=== PATIENT | female | born 1935 | race Hispanic/Latino ===

== ENCOUNTER 2017-01-25 13:43 | Inpatient (IN) | payer MEDICARE ==
[2017-01-25 15:57] LABS: Basophils % (Auto) 0.6 % (0.0-1.8); Eosinophils % (Auto) 1.2 % (0.0-4.3); Hematocrit 37.8 % (30.3-42.9); Hemoglobin 12.9 gm/dl (10.1-14.3); Mean Corpuscular HGB Conc 34 % (30-34); Mean Corpuscular Hemoglobin 32 pg (28-32); Mean Corpuscular Volume 93 fl (79-97); Platelet Count 173 K/mm3 (140-440); Red Blood Count 4.07 M/mm3 (3.65-5.03); Red Cell Distribution Width 12.7 % (13.2-15.2); White Blood Count 6.1 K/mm3 (4.5-11.0)
--- NOTE | 2017-01-25 16:53 | Emergency Department Report ---
ED Palpitations HPI - General Chief Complaint: Arrhythmia/Palpitations Stated Complaint: TACHYCARDIA Time Seen by Provider: 01/25/17 16:19 Source: patient, EMS Mode of arrival: Stretcher Limitations: No Limitations - History of Present Illness Initial Comments: 82-year-old female with past medical history of [place], coronary artery disease, PE , DVT, "fast heart rate" presenting to the ED complaining arrhythmia. Patient states one hour prior to ED arrival she was sitting on a couch started feeling as if her heart was beating "fast". The symptoms lasted for approximately 25 minutes at which point she called EMS. On EMS arrival the form Gen. heart rate was approximately 145. Patient states she had mild shortness of breath. Patient denies: Fever/chills, chest pain, dyspnea on exertion, abdominal pain, nausea/vomiting/diarrhea. Patient states she's had history of "fast heart rate " in the past and her and her bill clerk discussed possibly placing a pacemaker. MD Complaint: rapid heart beat, "heart racing" -: Sudden, minutes(s) (25) Context: occured during rest Arrythmia History: atrial fibrillation Associated Symptoms: denies other symptoms. denies: chest pain, shortness of breath, syncope, near-syncope, nausea/vomiting, diaphoresis, cough, parasthesias , feeling of impending doom, muscle cramps - Related Data Home Medications Medication Instructions Recorded Confirmed Last Taken Irbesartan [Avapro] 150 mg PO QHS 09/28/13 01/25/17 01/24/17 Metoprolol [Lopressor TAB] 25 mg PO QDAY 09/28/13 01/25/17 01/25/17 Phenytoin [Dilantin] 100 mg PO BID 09/28/13 01/25/17 01/25/17 Simvastatin [Zocor TAB] 40 mg PO QHS 09/28/13 01/25/17 01/24/17 Thyroid,Pork [[place] Thyroid] 60 mg PO QDAY 09/28/13 01/25/17 01/25/17 Ranitidine HCl [Zantac 150 MG TAB] 150 mg PO QHS 01/25/17 01/25/17 01/24/17 Warfarin [Coumadin] 1 mg PO QDAY 01/25/17 01/25/17 01/23/17 Warfarin [Coumadin] 2 mg PO QDAY 01/25/17 01/25/17 01/24/17 Allergies Allergy/AdvReac Type Severity Reaction Status Date / Time influenza virus vaccine, Allergy Swelling Verified 09/28/13 14:57 specific [Influenza Virus Vacc,Specific] Penicillins Allergy Rash Verified 09/28/13 14:57 ED Review of Systems ROS: Stated complaint: TACHYCARDIA Other details as noted in HPI Constitutional: denies: chills, fever Eyes: denies: eye pain, eye discharge, vision change ENT: denies: ear pain, throat pain Respiratory: shortness of breath, SOB with exertion, SOB at rest. denies: cough , wheezing Cardiovascular: palpitations. denies: chest pain, edema, syncope, paroxysmal nocturnal dyspnea Endocrine: no symptoms reported Gastrointestinal: denies: abdominal pain, nausea, diarrhea Genitourinary: denies: urgency, dysuria, discharge Musculoskeletal: denies: back pain, joint swelling, arthralgia Skin: denies: rash, lesions Neurological: denies: headache, weakness, paresthesias Psychiatric: denies: anxiety, depression Hematological/Lymphatic: denies: easy bleeding, easy bruising ED Past Medical Hx - Past Medical History Previous Medical History?: Yes Hx Hypertension: Yes Hx Heart Attack/AMI: Yes (2014 x2 stents) Hx Congestive Heart Failure: No Hx Diabetes: Yes Hx GERD: Yes Hx Arthritis: Yes Hx Seizures: Yes (last seizure 25 yrs ago) Hx Asthma: No Hx COPD: No Additional medical history: "bradycardia", cardiomegaly, upper & lower GI last year found colon polyps, high cholesterol - Surgical History Past Surgical History?: Yes Hx Coronary Stent: Yes (x2 stents) Additional Surgical History: fracture left tibia in July 2013 with associated knee effusions requiring drainage twice, right knee bursa removal - Social History Smoking Status: Never Smoker Substance Use Type: None - Medications Home Medications: Home Medications Medication Instructions Recorded Confirmed Last Taken Type Irbesartan [Avapro] 150 mg PO QHS 09/28/13 01/25/17 01/24/17 History Metoprolol [Lopressor TAB] 25 mg PO QDAY 09/28/13 01/25/17 01/25/17 History Phenytoin [Dilantin] 100 mg PO BID 09/28/13 01/25/17 01/25/17 History Simvastatin [Zocor TAB] 40 mg PO QHS 09/28/13 01/25/17 01/24/17 History Thyroid,Pork [[place] Thyroid] 60 mg PO QDAY 09/28/13 01/25/17 01/25/17 History Ranitidine HCl [Zantac 150 MG TAB] 150 mg PO QHS 01/25/17 01/25/17 01/24/17 History Warfarin [Coumadin] 1 mg PO QDAY 01/25/17 01/25/17 01/23/17 History Warfarin [Coumadin] 2 mg PO QDAY 01/25/17 01/25/17 01/24/17 History ED Physical Exam - General Limitations: No Limitations General appearance: alert, in no apparent distress - Head Head exam: Present: atraumatic, normocephalic - Eye Eye exam: Present: normal appearance - ENT ENT exam: Present: mucous membranes moist - Neck Neck exam: Present: normal inspection - Respiratory Respiratory exam: Present: normal lung sounds bilaterally. Absent: respiratory distress - Cardiovascular Cardiovascular Exam: Present: regular rate, normal rhythm. Absent: systolic murmur, diastolic murmur, rubs, gallop - GI/Abdominal GI/Abdominal exam: Present: soft, normal bowel sounds - Extremities Exam Extremities exam: Present: normal inspection - Back Exam Back exam: Present: normal inspection - Neurological Exam Neurological exam: Present: alert, oriented X3 - Psychiatric Psychiatric exam: Present: normal affect, normal mood - Skin Skin exam: Present: warm, dry, intact, normal color. Absent: rash ED Course Vital Signs 01/25/17 01/25/17 01/25/17 15:29 15:34 16:13 Temperature 97.7 F Pulse Rate 74 Respiratory 16 16 12 Rate Blood Pressure 112/69 Blood Pressure [Left] O2 Sat by Pulse 100 Oximetry 01/25/17 01/25/17 01/25/17 16:20 16:30 16:40 Temperature Pulse Rate 56 L 55 L 54 L Respiratory 16 16 13 Rate Blood Pressure 136/83 136/83 136/83 Blood Pressure [Left] O2 Sat by Pulse 98 99 99 Oximetry 01/25/17 01/25/17 01/25/17 16:50 17:00 17:10 Temperature Pulse Rate 56 L 56 L 58 L Respiratory 12 11 L 11 L Rate Blood Pressure 136/83 136/83 146/66 Blood Pressure [Left] O2 Sat by Pulse 99 100 99 Oximetry 01/25/17 01/25/17 01/25/17 17:20 17:21 17:30 Temperature 98.0 F Pulse Rate 61 57 L Respiratory 14 14 Rate Blood Pressure 146/66 146/66 Blood Pressure [Left] O2 Sat by Pulse 98 100 Oximetry 01/25/17 01/25/17 01/25/17 17:40 17:50 18:00 Temperature Pulse Rate 64 56 L 51 L Respiratory 14 15 11 L Rate Blood Pressure 146/66 146/66 146/66 Blood Pressure [Left] O2 Sat by Pulse 99 99 100 Oximetry 01/25/17 01/25/17 01/25/17 18:10 18:20 21:17 Temperature 98.1 F Pulse Rate 55 L 62 70 Respiratory 13 11 L 18 Rate Blood Pressure 141/61 146/66 Blood Pressure 166/64 [Left] O2 Sat by Pulse 99 100 99 Oximetry - Reevaluation(s) Reevaluation #1: 01/25/17 16:55 Patient resting comfortably. ED Medical Decision Making - Lab Data Result diagrams: 01/25/17 15:48 01/25/17 18:53 - EKG Data EKG shows normal: sinus rhythm (57), axis (negative ), intervals (QTC 410 ) Rate: normal - EKG Data When compared to previous EKG there are: previous EKG unavailable - Radiology Data Radiology results: report reviewed, image reviewed interpreted by me: mild vascular congestion, no other acute findings. - Medical Decision Making 82 -year-old female presenting to the ED status post palpitations and tachycardia. Patient's troponin negative however BNP elevated no previous to compare in the system. GIven tacycardia was accompanied by SOB, My concern is that the patient may be volume overloaded with mild pulmonary edema I will admit to medicine service for aggressive IV diuresis. Patient agrees to plan. - Differential Diagnosis ACS, PNA, PE, Pneumothorax Critical Care Time: Yes Critical care attestation.: If time is entered above; I have spent that time in minutes in the direct care of this critically ill patient, excluding procedure time. Critical Care Time: 35 minutes of critical care time ED Disposition Clinical Impression: Pulmonary edema, Shortness of breath, Palpitations Disposition: OP ADMIT IP TO THIS HOSP Is pt being admited?: Yes Does the pt Need Aspirin: No Condition: Stable
--- NOTE | 2017-01-25 16:53 | XRay Report ---
Chest 2 views. History: Shortness of breath. Findings: The heart and pulmonary vessels are normal. The lungs are clear. There is a large hiatal hernia. There is no pleural fluid. Impression: No acute findings. A large hiatal hernia is present.
[2017-01-25 16:56] LABS: Bilirubin,Urine NEG (Negative); Blood,Urine NEG (Negative); Ketones,Urine NEG (Negative); Leukocyte Esterase,Urine TR (Negative); Mucus,Urine FEW /HPF; Nitrite,Urine NEG (Negative); Protein,Urine <15 mg/dL mg/dL (Negative); RBC,Urine < 1.0 /HPF (0.0-6.0); Urobilinogen,Urine < 2.0 mg/dL (<2.0); WBC,Urine < 1.0 /HPF (0.0-6.0)
[2017-01-25 17:22] LABS: INR 1.91 (0.87-1.13)
[2017-01-25 17:23] LABS: Partial Thromboplastin Time 28.3 Sec. (24.2-36.6)
--- NOTE | 2017-01-25 19:20 | Admit Criteria Form ---
Admission Criteria Documentation: HEART FAILURE: COMMON COMPLICATIONS Clinical Indications for Inpatient Care (egegik/check or initial the applicable condition/criteria): Ongoing inpatient care may be indicated for heart failure with 1 or more of the following (1)(2)(3)(4)(5)(6)(7)(8): [ ]I. New-onset heart failure [ ]II. Acute cardiac ischemia causing or associated with failure [ ]III. Ongoing need for care for primary condition requiring frequent therapy adjustments because of changes in cardiac function (eg, drug dosage changes for drugs that are renally metabolized) [X]IV. Complications of heart failure, including 1 or more of the following: [ ]a) Hemodynamic instability [ ]b) Pericardial effusion [ ]c) Symptomatic pleural effusion(16) [ ]d) Hypoxemia [ ]e) Tachypnea [X ]f) Dyspnea [ ]g) Syncope [ ]h) Altered mental status [ ]i) Acute renal insufficiency that is severe (reduction of more than 50% in estimated glomerular filtration rate from baseline) or progressive (reduction of more than 25% in estimated glomerular filtration rate from baseline, with creatinine continuing to rise) [ ]j) Debilitating anasarca (eg tissue breakdown with infection, inability to void due to edema)(E) (17) [ ]k) Clinically significant metabolic abnormalities due to heart failure (e.g., new-onset metabolic acidosis) Extended stay may be needed until ALL of the following are present(1)(3)(18)(41) (55): [ ]a) Hemodynamic stability [ ]b) Stable and effective diuretic regimen established (or patient on stable dialysis regimen if in chronic renal failure) [ ]c) Volume status acceptable on oral medication [ ]d) Breathing comfortably at rest [ ]e) Saturation of arterial oxygen greater than 90% or at acceptable baseline [ ]f) Pulmonary edema absent or improved [ ]g) Peripheral or sacral edema absent or improved [ ]h) Renal function stable and manageable at a lower level of care [ ]i) Complications (e.g., pleural effusion) resolved or manageable at a lower level of care [ ]j) Patient or caregiver has received written discharge instructions or educational material addressing activity level, diet, discharge medications, follow-up appointment, weight monitoring, and what to do if symptoms worsen. (56)(57)(58) The original [facility] [employer] content created by Indira Flower has been revised. The portions of the content which have been revised are identified through the use of italic text or in bold, and Indira Flower has neither reviewed nor approved the modified material.All other unmodified content is copyright [facility] [email or web address]. Please see references footnoted in the original [facility] edition 2017 Admission Criteria Met: Yes
[2017-01-25 19:43] LABS: Anion Gap 21 mmol/L; BUN/Creatinine Ratio 28.57; Blood Urea Nitrogen 20 mg/dL (7-17); Calcium 9.4 mg/dL (8.4-10.2); Carbon Dioxide 22 mmol/L (22-30); Chloride 102.7 mmol/L (98-107); Glucose 85 mg/dL (65-100); Potassium 4.2 mmol/L (3.6-5.0); Sodium 141 mmol/L (137-145)
[2017-01-25] MEDS ORDERED: LASIX IV ONE (19:55)
--- NOTE | 2017-01-25 19:57 | History and Physical Report ---
History of Present Illness Chief complaint: my heart is beating real fast History of present illness: 82 YO Female with Atrial Fib, OA,GERD, [place], HTN, CAD S/P Stent Placement, Seizure Disorder, DVT/PE, Cardiomyopathy presents to ED for evaluation. Patient states one hour prior to ED arrival she was sitting on a couch started feeling as if her heart was beating "fast". The symptoms lasted for approximately 25 minutes at which point she called EMS. Upon EMS arrival pt found to have AF with heart rate of 145. Pt denies medication noncompliance, vision changes, CP , syncope, NVD, incontinence, back pain, fever, weight loss, night sweats, SOB, NVD, CP, Prononged Immobility, Calf pain, Hemoptysis, Chest pain with deep breathing. Pt acknowledges individual history of DVT/PE S/P surgery. Past History Past Medical History: acute [place], atrial fib, arthritis, CAD, DVT, GERD, pulmonary embolism Past Surgical History: Other (stent, knee surgery, Left leg surgery) Social history: , lives with family. denies: smoking, alcohol abuse, prescription drug abuse, IV drug use Family history: hypertension Medications and Allergies Allergies Allergy/AdvReac Type Severity Reaction Status Date / Time influenza virus vaccine, Allergy Swelling Verified 09/28/13 14:57 specific [Influenza Virus Vacc,Specific] Penicillins Allergy Rash Verified 09/28/13 14:57 Home Medications Medication Instructions Recorded Confirmed Last Taken Type Irbesartan [Avapro] 150 mg PO QDAY 09/28/13 02/09/15 09/28/13 History Metoprolol [Lopressor TAB] 25 mg PO QDAY 09/28/13 02/09/15 09/28/13 History Phenytoin [Dilantin] 100 mg PO Q8HR 09/28/13 02/09/15 09/28/13 History Simvastatin [Zocor TAB] 40 mg PO QHS 09/28/13 02/09/15 09/28/13 History Thyroid,Pork [[place] Thyroid] 60 mg PO QDAY 09/28/13 02/09/15 09/28/13 History Aspirin [Aspirin TAB] 325 mg PO QDAY #90 tablet 09/30/13 02/09/15 Unknown Rx Clopidogrel [Plavix] 75 mg PO QDAY #30 tablet 09/30/13 02/09/15 Unknown Rx Azithromycin [Zithromax Z-ERIBERTO] 250 mg PO DAILY #1 tab 02/10/15 Unknown Rx Cetirizine HCl [ZyrTEC] 10 mg PO DAILY PRN #10 capsule 02/10/15 Unknown Rx Review of Systems All systems: negative Constitutional: no weight loss Ears, nose, mouth and throat: no ear pain Cardiovascular: palpitations, rapid/irregular heart beat, no chest pain Respiratory: no cough Gastrointestinal: no abdominal pain Genitourinary Female: no pelvic pain Menstruation: no ammenorrhea Rectal: no pain Musculoskeletal: no neck stiffness Integumentary: no rash Neurological: no head injury Psychiatric: no anxiety Endocrine: no cold intolerance Hematologic/Lymphatic: no easy bruising Allergic/Immunologic: no urticaria Exam - Constitutional Vitals: Temp Pulse Resp BP Pulse Ox 98.0 F 62 11 L 146/66 100 01/25/17 17:21 01/25/17 18:20 01/25/17 18:20 01/25/17 18:20 01/25/17 18:20 General appearance: Present: mild distress - EENT Eyes: Present: PERRL ENT: hearing intact, clear oral mucosa - Neck Neck: Present: supple, normal ROM - Respiratory Respiratory: bilateral: diminished - Cardiovascular Rhythm: irregularly irregular Heart Sounds: Absent: gallop - Extremities Extremities: pulses symmetrical, No edema Peripheral Pulses: within normal limits - Abdominal General gastrointestinal: Present: soft, non-tender, non-distended, normal bowel sounds Female genitourinary: Present: normal - Integumentary Integumentary: Present: clear, warm, dry - Musculoskeletal Musculoskeletal: gait normal, strength equal bilaterally - Psychiatric Psychiatric: appropriate mood/affect, intact judgment & insight - Neurologic Neurologic: CNII-XII intact, moves all extremities Results - Labs CBC & Chem 7: 01/25/17 15:48 01/25/17 18:53 Labs: Abnormal lab results 01/25/17 01/25/17 01/25/17 Range/Units 15:48 16:20 16:55 RDW 12.7 L (13.2-15.2) % Lymph % (Auto) 36.4 H (13.4-35.0) % [place] % (Auto) 9.7 H (0.0-7.3) % PT 22.9 H (12.2-14.9) Sec. INR 1.91 H (0.87-1.13) BUN (7-17) mg/dL NT-Pro-B Natriuret Pep (0-900) pg/mL Urine pH 8.0 H (5.0-7.0) // Range/Units 18:53 RDW (13.2-15.2) % Lymph % (Auto) (13.4-35.0) % [place] % (Auto) (0.0-7.3) % PT (12.2-14.9) Sec. INR (0.87-1.13) BUN 20 H (7-17) mg/dL NT-Pro-B Natriuret Pep 1058 H (0-900) pg/mL Urine pH (5.0-7.0) Assessment and Plan - Patient Problems (1) Atrial fibrillation with rapid ventricular response Current Visit: Yes Status: Acute Plan to address problem: Cardiology consulted, resume full dose aspirin, supportive care, Pt currently NSR with controlled rate. (2) Accelerated hypertension Current Visit: No Status: Acute Plan to address problem: Monitor bp q shift, supportive care, resume home medication (3) Coronary artery disease Current Visit: No Status: Acute Qualifiers: Coronary Disease-Associated Artery/Lesion type: C [place] vs. transplanted heart: N Associated angina: A Plan to address problem: antiplatelet therapy, statin therapy, supportive care. (4) Hyperlipidemia Current Visit: No Status: Acute Qualifiers: Hyperlipidemia type: H Plan to address problem: continue statin therapy, (5) DVT prophylaxis Current Visit: No Status: Acute
[2017-01-25] MEDS ORDERED: ZOFRAN IV PRN (20:03)
[2017-01-25] MEDS ORDERED: MILK OF MAGNESIA PO PRN (20:03)
[2017-01-25] MEDS ORDERED: DULCOLAX PR PRN (20:03)
[2017-01-25] MEDS ORDERED: TYLENOL PO PRN (20:03)
[2017-01-25] MEDS ORDERED: NACL 0.45% 1000 ML 1,000 ML IV SCH (21:00)
[2017-01-25] MEDS ORDERED: LASIX ONE (21:37)
[2017-01-25] MEDS ORDERED: ZOCOR ONE (21:46)
[2017-01-25] MEDS ORDERED: DILANTIN ONE (21:47)
[2017-01-25] MEDS ORDERED: ZOCOR PO SCH (22:00)
[2017-01-25] MEDS: DILANTIN PO SCH (22:00)
[2017-01-26] MEDS: DILANTIN PO SCH ×2 (05:31→14:11)
[2017-01-26] MEDS ORDERED: PLAVIX PO SCH (10:00)
[2017-01-26] MEDS ORDERED: ASPIRIN PO SCH (10:00)
[2017-01-26] MEDS ORDERED: COZAAR PO SCH (10:00)
[2017-01-26] MEDS ORDERED: LOPRESSOR PO SCH (10:00)
[2017-01-26] MEDS ORDERED: NON-FORMULARY (Irbesartan [Avapro] 150 MG) PO SCH (10:00)
[2017-01-26] MEDS ORDERED: THYROID PORK 60 MG PO SCH (10:00)
--- NOTE | 2017-01-26 10:55 | Consultation ---
History of Present Illness Consult date: 01/26/17 Consult reason: atrial fibrillation History of present illness: This is an 82yr old woman with a past medical history of Hypertension, Seizure disorder, Coronary artery disease, PE/DVT s/p IVC filter on warfarin for oral anticoagulation who presented with palpitations. Patient reports she was sitting , reading a book when she felt her heart racing. EMS was called and she was noted to be in rapid atrial flutter, rate 141. She had no shortness of breath or chest pain. She denies diaphoresis. There was no pre-syncope or syncope. Patient complained of headaches. On arrival to the ED she spontaneously reverted to a sinus rhythm. A repeat ECG shows a sinus bradycardia, no acute ischemic changes. Cardiology consultation requested. Past History Past Medical History: acute [place], atrial fib, arthritis, CAD, DVT, GERD, pulmonary embolism Past Surgical History: Other (stent, knee surgery, Left leg surgery) Social history: , lives with family. denies: smoking, alcohol abuse, prescription drug abuse, IV drug use Family history: hypertension Medications and Allergies Allergies Allergy/AdvReac Type Severity Reaction Status Date / Time influenza virus vaccine, Allergy Swelling Verified 09/28/13 14:57 specific [Influenza Virus Vacc,Specific] Penicillins Allergy Rash Verified 09/28/13 14:57 Home Medications Medication Instructions Recorded Confirmed Last Taken Type Irbesartan [Avapro] 150 mg PO QHS 09/28/13 01/25/17 01/24/17 History Metoprolol [Lopressor TAB] 25 mg PO QDAY 09/28/13 01/25/17 01/25/17 History Phenytoin [Dilantin] 100 mg PO BID 09/28/13 01/25/17 01/25/17 History Simvastatin [Zocor TAB] 40 mg PO QHS 09/28/13 01/25/17 01/24/17 History Thyroid,Pork [[place] Thyroid] 60 mg PO QDAY 09/28/13 01/25/17 01/25/17 History Ranitidine HCl [Zantac 150 MG TAB] 150 mg PO QHS 01/25/17 01/25/17 01/24/17 History Warfarin [Coumadin] 1 mg PO QDAY 01/25/17 01/25/17 01/23/17 History Warfarin [Coumadin] 2 mg PO QDAY 0701/25/17 01/24/17 History Active Meds: Active Medications Acetaminophen (Tylenol) 650 mg PO Q4H PRN PRN Reason: Pain MILD(1-3)/Fever >100.5/DELACRUZ Last Admin: 01/26/17 05:33 Dose: 650 mg Aspirin (Aspirin) 325 mg PO QDAY [facility] Last Admin: 01/26/17 10:08 Dose: 325 mg Bisacodyl (Dulcolax) 10 mg [place] QDAY PRN PRN Reason: Constipation unrelieved by MOM Clopidogrel Bisulfate (Plavix) 75 mg PO QDAY [facility] Last Admin: 01/26/17 10:08 Dose: 75 mg Sodium Chloride (Nacl 0.45% 1000 Ml) 1,000 mls @ 42 mls/hr IV DIRECT [facility] Losartan Potassium (Cozaar) 50 mg PO QDAY [facility] Last Admin: 01/26/17 10:09 Dose: 50 mg Magnesium Hydroxide (Milk Of Magnesia) 30 ml PO Q4H PRN PRN Reason: Constipation Metoprolol Tartrate (Lopressor) 25 mg PO QDAY [facility] Last Admin: 01/26/17 10:08 Dose: 25 mg Miscellaneous Medication (Thyroid,Pork [[place] Thyroid]) 60 mg PO QDAY [facility] Ondansetron HCl (Zofran) 4 mg IV Q8H PRN PRN Reason: N/V unrelieved by Reglan Phenytoin (Dilantin) 100 mg PO Q8HR [facility] Last Admin: 01/26/17 05:31 Dose: 100 mg Simvastatin (Zocor) 40 mg PO QHS [facility] Physical Examination Vital Signs Temp Pulse Resp BP 97.7 F 74 16 112/69 01/25/17 15:29 01/25/17 15:29 01/25/17 15:29 01/25/17 15:29 General appearance: no acute distress HEENT: Positive: PERRL Neck: Positive: trachea midline Cardiac: Positive: Reg Rate and Rhythm Lungs: Positive: Decreased Breath Sounds Neuro: Positive: Grossly Intact Extremities: Absent: edema Results 01/25/17 15:48 01/25/17 18:53 Assessment and Plan Atrial flutter spontaneously reverted to a sinus rhythm Hx of Seizure disorder Hx of CAD Hypertension Hx of PE/DVT s/p IVC filter on warfarin as an outpatient for oral anticoagulation
[2017-01-26] MEDS ORDERED: THYROID PO SCH (15:00)
[2017-01-26 15:18] VITALS: BP 122/81
--- NOTE | 2017-01-26 15:58 | Progress Note ---
Assessment and Plan Assessment and plan: Patient is a 82-year-old woman with history of Atrial Fib on warfarin, OA,GERD, ND, HTN, CAD S/P Stent Placement, Seizure Disorder, DVT/PE, Cardiomyopathy and hypothyroidism presents to ED for evaluation. Patient states one hour prior to ED arrival she was sitting on a couch started feeling as if her heart was beating "fast". The symptoms lasted for approximately 25 minutes at which point she called EMS. Upon EMS arrival pt found to have AF with heart rate of 145. Pt denies medication noncompliance, vision changes, CP, syncope, NVD, incontinence, back pain, fever, weight loss, night sweats, SOB, NVD, CP, Prononged Immobility, Calf pain, Hemoptysis, Chest pain with deep breathing. Pt acknowledges individual history of DVT/PE S/P surgery. PCP is Dr. Vergara. Glue Line Operator is Dr. Martinez. -Paroxysmal atrial flutter with RVR Resume anticoagulation with warfarin therapy Outpatient follow-up with EP will be scheduled for atrial flutter ablation per cardiology -Accelerated hypertension -Coronary artery disease -Anticoagulation therapy INR 1.91 Patient has been scheduled to see Dr. Swain February 13 at 9:10 AM for possible ablation No further testing therefore discharged home History Interval history: Patient seen and examined. Follow up on palpitations. Overnight uneventful. No cp, sob, n/v or severe headaches. Imaging, old records, testing, labs, nursing notes reviewed. Hospitalist Physical - Physical exam Narrative exam: GEN: WDWN, NAD, AWAKE, ALERT, ORIENTATED x 3 HEENT: NCAT, PERRL, EOMI, OP CLEAR NECK: SUPPLE, NO THYROMEGALY, NO JVD, NO LAD CVS: irregular irregular NORMAL S1S2 LUNGS/CHEST: CTA B, NORMAL CHEST EXPANSION B, GOOD AIR ENTRY B ABD: SOFT, NTND, GBS, NO REBOUND OR GUARDING EXT/SKIN: NO SIGNIFICANT EDEMA OR RASH MSK: FROM X 4 EXTREMITIES NEURO: CN 2-12 GROSSLY INTACT, NO FOCAL DEFICITS PSY: CALM - Constitutional Vitals: Temp Pulse Resp BP Pulse Ox 97.5 F L 56 L 14 122/81 98 01/26/17 15:16 01/26/17 15:16 01/26/17 15:16 01/26/17 15:16 01/26/17 15:16 General appearance: Present: no acute distress Results - Labs CBC & Chem 7: 01/25/17 15:48 01/25/17 18:53 Labs: Laboratory Last Values WBC 6.1 K/mm3 (4.5-11.0) 01/25/17 15:48 RBC 4.07 M/mm3 (3.65-5.03) 01/25/17 15:48 Hgb 12.9 gm/dl (10.1-14.3) 01/25/17 15:48 Hct 37.8 % (30.3-42.9) 01/25/17 15:48 MCV 93 fl (79-97) 01/25/17 15:48 MCH 32 pg (28-32) 01/25/17 15:48 MCHC 34 % (30-34) 01/25/17 15:48 RDW 12.7 % (13.2-15.2) L 01/25/17 15:48 Plt Count 173 K/mm3 (140-440) 01/25/17 15:48 Lymph % (Auto) 36.4 % (13.4-35.0) H 01/25/17 15:48 [place] % (Auto) 9.7 % (0.0-7.3) H 01/25/17 15:48 Eos % (Auto) 1.2 % (0.0-4.3) 01/25/17 15:48 Baso % (Auto) 0.6 % (0.0-1.8) 01/25/17 15:48 Lymph # 2.2 K/mm3 (1.2-5.4) 01/25/17 15:48 [place] # 0.6 K/mm3 (0.0-0.8) 01/25/17 15:48 Eos # 0.1 K/mm3 (0.0-0.4) 01/25/17 15:48 Baso # 0.0 K/mm3 (0.0-0.1) 01/25/17 15:48 Seg Neutrophils % 52.1 % (40.0-70.0) 01/25/17 15:48 Seg Neutrophils # 3.2 K/mm3 (1.8-7.7) 01/25/17 15:48 PT 22.9 Sec. (12.2-14.9) H 01/25/17 16:55 INR 1.91 (0.87-1.13) H 01/25/17 16:55 APTT 28.3 Sec. (24.2-36.6) 01/25/17 16:55 Sodium 141 mmol/L (137-145) 01/25/17 18:53 Potassium 4.2 mmol/L (3.6-5.0) 01/25/17 18:53 Chloride 102.7 mmol/L (98-107) 01/25/17 18:53 Carbon Dioxide 22 mmol/L (22-30) 01/25/17 18:53 Anion Gap 21 mmol/L 01/25/17 18:53 BUN 20 mg/dL (7-17) H 01/25/17 18:53 Creatinine 0.7 mg/dL (0.7-1.2) 01/25/17 18:53 Estimated GFR > 60 ml/min 01/25/17 18:53 BUN/Creatinine Ratio 28.57 % 01/25/17 18:53 Glucose 85 mg/dL (65-100) 01/25/17 18:53 Calcium 9.4 mg/dL (8.4-10.2) 01/25/17 18:53 Troponin T < 0.010 ng/mL (0.00-0.029) 01/25/17 18:53 NT-Pro-B Natriuret Pep 1058 pg/mL (0-900) H 01/25/17 18:53 Urine Color Yellow (Yellow) 01/25/17 16:20 Urine Turbidity Clear (Clear) 01/25/17 16:20 Urine pH 8.0 (5.0-7.0) H 01/25/17 16:20 Ur Specific [place] 1.008 (1.003-1.030) 01/25/17 16:20 Urine Protein <15 mg/dl mg/dL (Negative) 01/25/17 16:20 Urine Glucose (UA) Neg mg/dL (Negative) 01/25/17 16:20 Urine Ketones Neg mg/dL (Negative) 01/25/17 16:20 Urine Blood Neg (Negative) 01/25/17 16:20 Urine Nitrite Neg (Negative) 01/25/17 16:20 Urine Bilirubin Neg (Negative) 01/25/17 16:20 Urine Urobilinogen < 2.0 mg/dL (<2.0) 01/25/17 16:20 Ur Leukocyte Esterase Tr (Negative) 01/25/17 16:20 Urine WBC (Auto) < 1.0 /HPF (0.0-6.0) 01/25/17 16:20 Urine RBC (Auto) < 1.0 /HPF (0.0-6.0) 01/25/17 16:20 U Epithel Cells (Auto) 1.0 /HPF (0-13.0) 01/25/17 16:20 Urine Mucus Few /HPF 01/25/17 16:20
--- NOTE | 2017-01-26 16:09 | Discharge Summary ---
Providers - Providers Date of Admission: 01/25/17 20:03 Date of discharge: 01/26/17 Attending physician: RODIRCK ALCAZAR 01/25/17 20:13 Consult to Physician [CONS] Routine Consulting Provider: MARCIAL MONTENEGRO Reason For Exam: Afib/Sick sinus syndrome Place consult to:: cardiology Notified:: Idania Phone number called:: In House Time called:: 08:20 Primary care physician: [employer] [employer] Hospitalization Condition: Stable Hospital course: Patient is a 82-year-old woman with history of Atrial Fib on warfarin, OA,GERD, NM, HTN, CAD S/P Stent Placement, Seizure Disorder, DVT/PE, Cardiomyopathy and hypothyroidism presents to ED for evaluation. Patient states one hour prior to ED arrival she was sitting on a couch started feeling as if her heart was beating "fast". The symptoms lasted for approximately 25 minutes at which point she called EMS. Upon EMS arrival pt found to have AF with heart rate of 145. Pt denies medication noncompliance, vision changes, CP, syncope, NVD, incontinence, back pain, fever, weight loss, night sweats, SOB, NVD, CP, Prononged Immobility, Calf pain, Hemoptysis, Chest pain with deep breathing. Pt acknowledges individual history of DVT/PE S/P surgery. PCP is Dr. Vergara. Transitions Manager Rn is Dr. Martinez. -Paroxysmal atrial flutter with RVR Resume anticoagulation with warfarin therapy Outpatient follow-up with EP will be scheduled for atrial flutter ablation per cardiology -Accelerated hypertension -Coronary artery disease -Anticoagulation therapy INR 1.91 Patient has been scheduled to see Dr. Swain February 13 at 9:10 AM for possible ablation No further testing therefore discharged home Disposition: DC-01 TO HOME OR SELFCARE Time spent for discharge: 36 minutes Core Measure Documentation - Palliative Care Palliative Care/ Comfort Measures: Not Applicable - Core Measures Any of the following diagnoses?: none - VTE Discharge Requirements Deep Vein Thrombosis/Pulmonary Embolism Present on Admission: No Has pt received <5 days of overlap therapy or INR<2.0: No Anticoagulant overlap therapy prescribed at discharge: No Contraindication No Overlap Therapy order at DC: Not Indicated Exam - Physical Exam Narrative exam: GEN: WDWN, NAD, AWAKE, ALERT, ORIENTATED x 3 HEENT: NCAT, PERRL, EOMI, OP CLEAR NECK: SUPPLE, NO THYROMEGALY, NO JVD, NO LAD CVS: irregular irregular NORMAL S1S2 LUNGS/CHEST: CTA B, NORMAL CHEST EXPANSION B, GOOD AIR ENTRY B ABD: SOFT, NTND, GBS, NO REBOUND OR GUARDING EXT/SKIN: NO SIGNIFICANT EDEMA OR RASH MSK: FROM X 4 EXTREMITIES NEURO: CN 2-12 GROSSLY INTACT, NO FOCAL DEFICITS PSY: CALM - Constitutional Vitals: Temp Pulse Resp BP Pulse Ox 97.5 F L 56 L 14 122/81 98 01/26/17 15:16 01/26/17 15:16 01/26/17 15:16 01/26/17 15:16 01/26/17 15:16 Plan Activity: no driving until cleared by PCP (and stock drier tender), other (no strenous activites until cleared by stock drier tender) Diet: low salt Additional Instructions: If you experience palpitations again please call Dr. Swain, from [facility]. Please check your blood pressure and heart rate. Seek immediate medical attention if systolic blood pressures(top number) is less than 100 and/or heart rate is over 120 or less than 50. Follow up with: PRIMARY MD SERGE [Primary Care Provider] - 3-5 Days
[2017-01-26] MEDS ORDERED: ZOCOR PO ONE (22:00)
[2017-01-26] MEDS ORDERED: ZOCOR PO SCH (22:00)
== END 2017-01-26 17:17 | disposition home or self-care (01) | DRG 309 ==
LOC: ED 13:43 → 4A 20:03
PROVIDERS: ADMIT Internal Medicine; ATTEND Internal Medicine
DX: I48.92 Unspecified atrial flutter (principal); J81.1 Chronic pulmonary edema; I48.91 Unspecified atrial fibrillation; I25.10 Atherosclerotic heart disease of native coronary artery without angina pectoris; E78.5 Hyperlipidemia, unspecified; I10 Essential (primary) hypertension; I49.5 Sick sinus syndrome; M19.90 Unspecified osteoarthritis, unspecified site; K21.9 Gastro-esophageal reflux disease without esophagitis; G40.909 Epilepsy, unspecified, not intractable, without status epilepticus; I42.9 Cardiomyopathy, unspecified; E03.9 Hypothyroidism, unspecified; E11.9 Type 2 diabetes mellitus without complications; Z95.5 Presence of coronary angioplasty implant and graft; Z86.718 Personal history of other venous thrombosis and embolism; Z86.711 Personal history of pulmonary embolism; I25.2 Old myocardial infarction; Z88.0 Allergy status to penicillin; Z82.49 Family history of ischemic heart disease and other diseases of the circulatory system
CPT/HCPCS: 36415; 71020; 80048; 81001; 83880; 84484; 85025; 85610; 85730; 93005; 93010; 96374; 99291; J1940

== ENCOUNTER 2017-02-19 09:22 | Emergency (ER) | payer MEDICARE ==
[2017-02-19 10:25] LABS: Basophils % (Auto) 0.8 % (0.0-1.8); Eosinophils % (Auto) 3.7 % (0.0-4.3); Hematocrit 40.5 % (30.3-42.9); Hemoglobin 13.5 gm/dl (10.1-14.3); Mean Corpuscular HGB Conc 33 % (30-34); Mean Corpuscular Hemoglobin 31 pg (28-32); Mean Corpuscular Volume 94 fl (79-97); Platelet Count 191 K/mm3 (140-440); Red Blood Count 4.32 M/mm3 (3.65-5.03); Red Cell Distribution Width 12.8 % (13.2-15.2); White Blood Count 5.3 K/mm3 (4.5-11.0)
[2017-02-19 10:31] LABS: INR 1.59 (0.87-1.13)
[2017-02-19 10:32] LABS: Partial Thromboplastin Time 26.3 Sec. (24.2-36.6)
[2017-02-19 10:50] LABS: Creatine Kinase MB 2.1 ng/mL (0.0-4.0)
[2017-02-19 10:51] LABS: Anion Gap 19 mmol/L; Blood Urea Nitrogen 16 mg/dL (7-17); Calcium 9.3 mg/dL (8.4-10.2); Carbon Dioxide 24 mmol/L (22-30); Chloride 104.8 mmol/L (98-107); Creatine Kinase 101 units/L (30-135); Glucose 108 mg/dL (65-100); Potassium 4.8 mmol/L (3.6-5.0); Sodium 143 mmol/L (137-145)
[2017-02-19 11:06] LABS: Bilirubin,Urine NEG (Negative); Blood,Urine NEG (Negative); Ketones,Urine NEG (Negative); Leukocyte Esterase,Urine NEG (Negative); Mucus,Urine FEW /HPF; Nitrite,Urine NEG (Negative); Protein,Urine <15 mg/dL mg/dL (Negative); RBC,Urine < 1.0 /HPF (0.0-6.0); Urobilinogen,Urine < 2.0 mg/dL (<2.0)
--- NOTE | 2017-02-19 11:29 | Emergency Department Report ---
ED Palpitations HPI - General Chief Complaint: Arrhythmia/Palpitations Stated Complaint: BLU Time Seen by Provider: 02/19/17 10:34 Source: patient, EMS (ems notes not available at time of chart dictation), RN notes reviewed Mode of arrival: Stretcher Limitations: No Limitations - History of Present Illness Initial Comments: This is an 82-year-old female. She is previously unknown to me. Past medical history includes hypertension, seizure, heart disease, pulmonary embolus/DVT, IVC filter on Coumadin oral anticoagulation. Patient also found to have a history of paroxysmal atrial flutter. Her private hard tile setter apprentice is Dr. Swain the patient presents to the ER with a complaint of resolved chest palpitations. She reports a rate in the 140s this morning. It lasted more than 15 minutes, was not involved with pain, it did not improve with Valsalva maneuver. She reports that she presents to the ER because her hard tile setter apprentice told her to do so. She is taking metoprolol 25 mg twice daily, denies dietary indiscretions, denies chest pain, shortness of breath, irritative and obstructive urinary symptoms, and is taking Coumadin, 2 mg daily, with initial dose on Sundays. She has follow-up with her outpatient hard tile setter apprentice tomorrow. Complaint: rapid heart beat, "heart racing", palpitations -: Sudden Context: occured during rest Arrythmia History: atrial fibrillation, on anti-coagulants Associated Symptoms: denies other symptoms - Related Data Home Medications Medication Instructions Recorded Confirmed Last Taken Irbesartan [Avapro] 150 mg PO QHS 09/28/13 02/19/17 02/18/17 Metoprolol [Lopressor TAB] 25 mg PO BID 09/28/13 02/19/17 02/19/17 Phenytoin [Dilantin] 100 mg PO BID 09/28/13 02/19/17 02/19/17 Simvastatin [Zocor TAB] 40 mg PO QHS 09/28/13 02/19/17 02/18/17 Thyroid,Pork [[place] Thyroid] 60 mg PO QDAY 09/28/13 02/19/17 02/19/17 Ranitidine HCl [Zantac 150 MG TAB] 150 mg PO QHS 01/25/17 02/19/17 02/18/17 Warfarin [Coumadin] 1 mg PO QDAY 01/25/17 02/19/17 02/18/17 Warfarin [Coumadin] 2 mg PO QDAY 01/25/17 02/19/17 02/19/17 Allergies Allergy/AdvReac Type Severity Reaction Status Date / Time influenza virus vaccine, Allergy Swelling Verified 09/28/13 14:57 specific [Influenza Virus Vacc,Specific] Penicillins Allergy Rash Verified 09/28/13 14:57 ED Review of Systems ROS: Stated complaint: BLU Other details as noted in HPI Constitutional: denies: malaise Eyes: denies: vision change ENT: denies: epistaxis Respiratory: see HPI Cardiovascular: palpitations Gastrointestinal: denies: vomiting Genitourinary: denies: dysuria Musculoskeletal: denies: back pain Skin: denies: lesions Neurological: denies: weakness Psychiatric: denies: anxiety ED Past Medical Hx - Past Medical History Hx Hypertension: Yes Hx Heart Attack/AMI: Yes (2014 x2 stents) Hx Congestive Heart Failure: No Hx Diabetes: Yes Hx GERD: Yes Hx Arthritis: Yes Hx Seizures: Yes (last seizure 25 yrs ago) Hx Asthma: No Hx COPD: No Additional medical history: "bradycardia", cardiomegaly, upper & lower GI last year found colon polyps, high cholesterol - Surgical History Hx Coronary Stent: Yes (x2 stents) Additional Surgical History: fracture left tibia in July 2013 with associated knee effusions requiring drainage twice, right knee bursa removal - Social History Smoking Status: Never Smoker Substance Use Type: None - Medications Home Medications: Home Medications Medication Instructions Recorded Confirmed Last Taken Type Irbesartan [Avapro] 150 mg PO QHS 09/28/13 02/19/17 02/18/17 History Metoprolol [Lopressor TAB] 25 mg PO BID 09/28/13 02/19/17 02/19/17 History Phenytoin [Dilantin] 100 mg PO BID 09/28/13 02/19/17 02/19/17 History Simvastatin [Zocor TAB] 40 mg PO QHS 09/28/13 02/19/17 02/18/17 History Thyroid,Pork [[place] Thyroid] 60 mg PO QDAY 09/28/13 02/19/17 02/19/17 History Ranitidine HCl [Zantac 150 MG TAB] 150 mg PO QHS 01/25/17 02/19/17 02/18/17 History Warfarin [Coumadin] 1 mg PO QDAY 01/25/17 02/19/17 02/18/17 History Warfarin [Coumadin] 2 mg PO QDAY 01/25/17 02/19/17 02/19/17 History ED Physical Exam - General Limitations: No Limitations General appearance: alert, in no apparent distress - Head Head exam: Present: atraumatic, normocephalic - Eye Eye exam: Present: normal appearance, EOMI. Absent: nystagmus - ENT ENT exam: Present: normal exam, normal orophraynx, mucous membranes moist, normal external ear exam - Neck Neck exam: Present: normal inspection, full ROM. Absent: tenderness, meningismus - Respiratory Respiratory exam: Present: normal lung sounds bilaterally. Absent: respiratory distress, wheezes, rales, rhonchi, stridor, chest wall tenderness, accessory muscle use, prolonged expiratory - Cardiovascular Cardiovascular Exam: Present: normal rhythm, bradycardia, normal heart sounds. Absent: systolic murmur, diastolic murmur, rubs, gallop - GI/Abdominal GI/Abdominal exam: Present: soft, normal bowel sounds. Absent: distended, tenderness, guarding, rebound, rigid, pulsatile mass - Extremities Exam Extremities exam: Present: normal inspection, full ROM, normal capillary refill. Absent: tenderness, pedal edema, joint swelling, calf tenderness - Back Exam Back exam: Present: normal inspection, full ROM. Absent: tenderness, CVA tenderness (R), CVA tenderness (L), muscle spasm, paraspinal tenderness, vertebral tenderness - Neurological Exam Neurological exam: Present: alert, oriented X3, normal gait, other (Extraocular movements intact. Tongue midline. No facial droop. Facial sensation intact to light touch in the V1, V2, V3 distribution bilaterally. 5 and 5 strength in 4 extremities.. Sensation is intact to light touch in 4 extremities.). Absent : motor sensory deficit - Psychiatric Psychiatric exam: Present: normal affect, normal mood - Skin Skin exam: Present: warm, dry, intact, normal color. Absent: rash ED Course Vital Signs 02/19/17 02/19/17 02/19/17 09:44 11:06 12:01 Temperature 97.5 F L 98 F 97.8 F Pulse Rate 50 L 62 53 L Respiratory 18 13 13 Rate Blood Pressure 156/72 Blood Pressure 150/72 133/57 [Left] O2 Sat by Pulse 99 98 96 Oximetry ED Medical Decision Making - Lab Data Result diagrams: 02/19/17 10:13 02/19/17 10:13 Vital Signs 02/19/17 02/19/17 09:44 11:06 Temperature 97.5 F L 98 F Pulse Rate 50 L 62 Respiratory 18 13 Rate Blood Pressure 156/72 Blood Pressure 150/72 [Left] O2 Sat by Pulse 99 98 Oximetry Lab Results 02/19/17 02/19/17 02/19/17 Range/Units 10:13 10:13 10:13 WBC 5.3 (4.5-11.0) K/mm3 RBC 4.32 (3.65-5.03) M/mm3 Hgb 13.5 (10.1-14.3) gm/dl Hct 40.5 (30.3-42.9) % MCV 94 (79-97) fl MCH 31 (28-32) pg MCHC 33 (30-34) % RDW 12.8 L (13.2-15.2) % Plt Count 191 (140-440) K/mm3 Lymph % (Auto) 33.4 (13.4-35.0) % [place] % (Auto) 8.2 H (0.0-7.3) % Eos % (Auto) 3.7 (0.0-4.3) % Baso % (Auto) 0.8 (0.0-1.8) % Lymph # 1.8 (1.2-5.4) K/mm3 [place] # 0.4 (0.0-0.8) K/mm3 Eos # 0.2 (0.0-0.4) K/mm3 Baso # 0.0 (0.0-0.1) K/mm3 Seg Neutrophils % 53.9 (40.0-70.0) % Seg Neutrophils # 2.9 (1.8-7.7) K/mm3 PT 18.9 H (12.2-14.9) Sec. INR 1.59 H (0.87-1.13) APTT 26.3 (24.2-36.6) Sec. Sodium 143 (137-145) mmol/L Potassium 4.8 (3.6-5.0) mmol/L Chloride 104.8 (98-107) mmol/L Carbon Dioxide 24 (22-30) mmol/L Anion Gap 19 mmol/L BUN 16 (7-17) mg/dL Creatinine 0.8 (0.7-1.2) mg/dL Estimated GFR > 60 ml/min BUN/Creatinine Ratio 20.00 % Glucose 108 H (65-100) mg/dL Calcium 9.3 (8.4-10.2) mg/dL Magnesium (1.7-2.3) mg/dL Total Creatine Kinase 101 (30-135) units/L CK-MB (CK-2) 2.1 (0.0-4.0) ng/mL CK-MB (CK-2) Rel Index 2.0 (0-4) Troponin T < 0.010 (0.00-0.029) ng/mL Urine Color (Yellow) Urine Turbidity (Clear) Urine pH (5.0-7.0) Ur Specific [place] (1.003-1.030) Urine Protein (Negative) mg/dL Urine Glucose (UA) (Negative) mg/dL Urine Ketones (Negative) mg/dL Urine Blood (Negative) Urine Nitrite (Negative) Urine Bilirubin (Negative) Urine Urobilinogen (<2.0) mg/dL Ur Leukocyte Esterase (Negative) Urine WBC (Auto) (0.0-6.0) /HPF Urine RBC (Auto) (0.0-6.0) /HPF U Epithel Cells (Auto) (0-13.0) /HPF Urine Mucus /HPF 02/19/17 02/19/17 Range/Units 10:13 10:40 WBC (4.5-11.0) K/mm3 RBC (3.65-5.03) M/mm3 Hgb (10.1-14.3) gm/dl Hct (30.3-42.9) % MCV (79-97) fl MCH (28-32) pg MCHC (30-34) % RDW (13.2-15.2) % Plt Count (140-440) K/mm3 Lymph % (Auto) (13.4-35.0) % [place] % (Auto) (0.0-7.3) % Eos % (Auto) (0.0-4.3) % Baso % (Auto) (0.0-1.8) % Lymph # (1.2-5.4) K/mm3 [place] # (0.0-0.8) K/mm3 Eos # (0.0-0.4) K/mm3 Baso # (0.0-0.1) K/mm3 Seg Neutrophils % (40.0-70.0) % Seg Neutrophils # (1.8-7.7) K/mm3 PT (12.2-14.9) Sec. INR (0.87-1.13) APTT (24.2-36.6) Sec. Sodium (137-145) mmol/L Potassium (3.6-5.0) mmol/L Chloride (98-107) mmol/L Carbon Dioxide (22-30) mmol/L Anion Gap mmol/L BUN (7-17) mg/dL Creatinine (0.7-1.2) mg/dL Estimated GFR ml/min BUN/Creatinine Ratio % Glucose (65-100) mg/dL Calcium (8.4-10.2) mg/dL Magnesium 2.00 (1.7-2.3) mg/dL Total Creatine Kinase (30-135) units/L CK-MB (CK-2) (0.0-4.0) ng/mL CK-MB (CK-2) Rel Index (0-4) Troponin T (0.00-0.029) ng/mL Urine Color Yellow (Yellow) Urine Turbidity Clear (Clear) Urine pH 9.0 H (5.0-7.0) Ur Specific [place] 1.012 (1.003-1.030) Urine Protein <15 mg/dl (Negative) mg/dL Urine Glucose (UA) Neg (Negative) mg/dL Urine Ketones Neg (Negative) mg/dL Urine Blood Neg (Negative) Urine Nitrite Neg (Negative) Urine Bilirubin Neg (Negative) Urine Urobilinogen < 2.0 (<2.0) mg/dL Ur Leukocyte Esterase Neg (Negative) Urine WBC (Auto) 1.0 (0.0-6.0) /HPF Urine RBC (Auto) < 1.0 (0.0-6.0) /HPF U Epithel Cells (Auto) < 1.0 (0-13.0) /HPF Urine Mucus Few /HPF - EKG Data -: EKG Interpreted by Me - EKG Data 02/19/17 11:27 sinus bradycardia, 53 bpm, right bundle nhan block, abnormal EKG, not morphologically consistent with STEMI, appears unchanged from prior - Radiology Data Radiology results: image reviewed interpreted by me: X-ray of the chest is negative for acute disease. Left-sided event recorder is noted. - Medical Decision Making Differential diagnosis: Paroxysmal atrial flutter, arrhythmia, pneumonia, electrolyte derangement, urinary tract infection, sick sinus syndrome Assessment and plan: 82-year-old female with a complaint of tachycardia, now resolved. She is afebrile with reassuring vital signs. Laboratory studies unremarkable with the exception of subtherapeutic INR. Urinalysis and chest x- ray not consistent with infectious etiology. Troponin is ordered prior to my evaluation, patient not having chest pain, shortness of breath, nausea, vomiting or diaphoresis. Very low suspicion for acute coronary syndrome, and patient has follow-up with her outpatient hard tile setter apprentice tomorrow, therefore I do not believe she requires admission for ACS risk stratification. Case was discussed with nurse practitioner for the patient's private hard tile setter apprentice, tuan TRIANA, who agrees that patient should continue her current outpatient medications and follow-up with her hard tile setter apprentice tomorrow. Critical care attestation.: If time is entered above; I have spent that time in minutes in the direct care of this critically ill patient, excluding procedure time. ED Disposition Clinical Impression: Palpitations Disposition: DC-01 TO HOME OR SELFCARE Is pt being admited?: No Does the pt Need Aspirin: No Condition: Stable Instructions: Palpitations (ED) Additional Instructions: Continue current outpatient medications. Follow up with her hard tile setter apprentice tomorrow as scheduled. Increase Coumadin to 3 mg daily, for the next 3 days, and follow up with either your outpatient hard tile setter apprentice or primary care doctor within the next 3-4 days for outpatient INR check Return to the ER right away with fevers, chills, chest pain, shortness of breath, confusion, intractable nausea or vomiting, inability to tolerate liquid feeds. Referrals: KILEY VALENTINE MD [Primary Care Provider] - 3-5 Days TC SWAIN MD [Staff Physician] - 3-5 Days
--- NOTE | 2017-02-19 11:34 | XRay Report ---
PORTABLE CHEST INDICATION: Dysrhythmia. COMPARISON: 01/25/2017 FINDINGS: Portable, frontal chest radiograph demonstrate stable cardiomediastinal silhouette, including known hiatal hernia. Clear lungs. Few extrinsic artifacts. Aortic knob calcifications. Demineralized bones with few degenerative changes. CONCLUSION: No acute chest process, as described. Thank you for the opportunity to participate in this patient's care.
[2017-02-19 12:02] VITALS: BP 133/57
== END 2017-02-19 12:02 | disposition home or self-care (01) ==
LOC: ED 09:22
DX: R00.2 Palpitations (principal); Z79.01 Long term (current) use of anticoagulants; E78.00 Pure hypercholesterolemia, unspecified; I10 Essential (primary) hypertension; I25.2 Old myocardial infarction; R56.9 Unspecified convulsions; Z88.0 Allergy status to penicillin; Z88.8 Allergy status to other drugs, medicaments and biological substances
CPT/HCPCS: 36415; 71010; 80048; 81001; 82550; 82553; 83735; 84484; 85025; 85610; 85730; 93005; 93010

== ENCOUNTER 2017-09-04 10:38 | Emergency (ER) | payer MEDICARE ==
[2017-09-04 11:45] LABS: Hematocrit 42.6 % (30.3-42.9); Hemoglobin 14.7 gm/dl (10.1-14.3); Mean Corpuscular HGB Conc 35 % (30-34); Mean Corpuscular Hemoglobin 32 pg (28-32); Mean Corpuscular Volume 91 fl (79-97); Platelet Count 168 K/mm3 (140-440); Red Blood Count 4.66 M/mm3 (3.65-5.03); Red Cell Distribution Width 12.7 % (13.2-15.2)
[2017-09-04 12:03] LABS: BUN/Creatinine Ratio 18; Blood Urea Nitrogen 14 mg/dL (7-17); Calcium 8.6 mg/dL (8.4-10.2); Hemolysis Index 2
--- NOTE | 2017-09-04 13:01 | Event Note ---
Date: 09/04/17 Patient is an 82 year old f who presents with n/v/d. Sent over by PCP history of afib. Will give fluids, blood work, ekg, troponin.
[2017-09-04] MEDS ORDERED: NACL 0.9% 1000 ML 1,000 ML IV ONE (13:06)
--- NOTE | 2017-09-04 13:43 | XRay Report ---
AP CHEST: HISTORY: Weakness, shortness of breath Borderline heart size. Normal pulmonary vascularity. The lungs are clear. The bony structures are intact. A moderate hiatal hernia posterior to the heart suspected. IMPRESSION: Borderline cardiomegaly. Hiatal hernia.
[2017-09-04 14:25] LABS: INR 1.92 (0.87-1.13); Partial Thromboplastin Time 35.3 Sec. (24.2-36.6)
[2017-09-04 14:50] LABS: Alanine Aminotransferase 11 units/L (7-56); Albumin 3.5 g/dL (3.9-5)
[2017-09-04 14:54] LABS: Bilirubin,Direct < 0.2 mg/dL (0-0.2)
--- NOTE | 2017-09-04 16:11 | Emergency Department Report ---
ED General Adult HPI - General Chief complaint: Nausea/Vomiting/Diarrhea Stated complaint: DIARRHEA Time Seen by Provider: 09/04/17 13:57 Source: patient Mode of arrival: Ambulatory Limitations: No Limitations - History of Present Illness Initial comments: Patient feels like she might of ate some "bad coleslaw" on Sunday. She states she's been having diarrhea recurrently since then. Her last doubt of diarrhea was somewhat like mucous and had about 10 AM this morning. She has not had any recurrent diarrhea since. She has some nausea but that has resolved. She has not been vomiting. She feels somewhat weak and has not been eating well over the past 2 days. She denies fever, chills, abdominal pain, vomiting. She said no recent travel. She has not been admitted to hospital within the last 90 days nor been on any antibiotics. -: Gradual, days(s) Improves with: none Worsens with: none Treatments Prior to Arrival: none - Related Data Home Medications Medication Instructions Recorded Confirmed Last Taken Irbesartan [Avapro] 150 mg PO QHS 09/28/13 02/19/17 02/18/17 Metoprolol [Lopressor TAB] 25 mg PO BID 09/28/13 02/19/17 02/19/17 Phenytoin [Dilantin] 100 mg PO BID 09/28/13 02/19/17 02/19/17 Simvastatin [Zocor TAB] 40 mg PO QHS 09/28/13 02/19/17 02/18/17 Thyroid,Pork [[place] Thyroid] 60 mg PO QDAY 09/28/13 02/19/17 02/19/17 Ranitidine HCl [Zantac 150 MG TAB] 150 mg PO QHS 01/25/17 02/19/17 02/18/17 Warfarin [Coumadin] 1 mg PO QDAY 01/25/17 02/19/17 02/18/17 Warfarin [Coumadin] 2 mg PO QDAY 01/25/17 02/19/17 02/19/17 Allergies Allergy/AdvReac Type Severity Reaction Status Date / Time influenza virus vaccine, Allergy Swelling Verified 09/28/13 14:57 specific [Influenza Virus Vacc,Specific] Penicillins Allergy Rash Verified 09/28/13 14:57 ED Review of Systems ROS: Stated complaint: DIARRHEA Other details as noted in HPI Constitutional: denies: chills, fever Eyes: denies: eye pain, eye discharge, vision change ENT: denies: ear pain, throat pain Respiratory: denies: cough, shortness of breath, wheezing Cardiovascular: denies: chest pain, palpitations Endocrine: no symptoms reported Gastrointestinal: nausea, diarrhea. denies: abdominal pain, vomiting Genitourinary: denies: urgency, dysuria, discharge Musculoskeletal: denies: back pain, joint swelling, arthralgia Skin: denies: rash, lesions Neurological: denies: headache, weakness, paresthesias Psychiatric: denies: anxiety, depression Hematological/Lymphatic: denies: easy bleeding, easy bruising ED Past Medical Hx - Past Medical History Hx Hypertension: Yes Hx Heart Attack/AMI: Yes (2014 x2 stents) Hx Congestive Heart Failure: No Hx Diabetes: Yes (pre-diabetic) Hx GERD: Yes Hx Arthritis: Yes Hx Seizures: Yes (last seizure 25 yrs ago) Hx Asthma: No Hx COPD: No Additional medical history: "bradycardia", cardiomegaly, upper & lower GI last year found colon polyps, high cholesterol - Surgical History Hx Coronary Stent: Yes (x2 stents) Additional Surgical History: fracture left tibia in July 2013 with associated knee effusions requiring drainage twice, right knee bursa removal - Social History Smoking Status: Never Smoker Substance Use Type: None - Medications Home Medications: Home Medications Medication Instructions Recorded Confirmed Last Taken Type Irbesartan [Avapro] 150 mg PO QHS 09/28/13 02/19/17 02/18/17 History Metoprolol [Lopressor TAB] 25 mg PO BID 09/28/13 02/19/17 02/19/17 History Phenytoin [Dilantin] 100 mg PO BID 09/28/13 02/19/17 02/19/17 History Simvastatin [Zocor TAB] 40 mg PO QHS 09/28/13 02/19/17 02/18/17 History Thyroid,Pork [[place] Thyroid] 60 mg PO QDAY 09/28/13 02/19/17 02/19/17 History Ranitidine HCl [Zantac 150 MG TAB] 150 mg PO QHS 01/25/17 02/19/17 02/18/17 History Warfarin [Coumadin] 1 mg PO QDAY 01/25/17 02/19/17 02/18/17 History Warfarin [Coumadin] 2 mg PO QDAY 01/25/17 02/19/17 02/19/17 History ED Physical Exam - General Limitations: No Limitations General appearance: alert, in no apparent distress, other (appears a bit volume depleted) - Head Head exam: Present: atraumatic, normocephalic - Eye Eye exam: Present: normal appearance, PERRL, EOMI. Absent: scleral icterus - ENT ENT exam: Present: mucous membranes moist - Neck Neck exam: Present: normal inspection. Absent: tenderness, meningismus - Respiratory Respiratory exam: Present: normal lung sounds bilaterally. Absent: respiratory distress - Cardiovascular Cardiovascular Exam: Present: regular rate, normal rhythm. Absent: systolic murmur, diastolic murmur, rubs, gallop - GI/Abdominal GI/Abdominal exam: Present: soft, normal bowel sounds. Absent: distended, tenderness, guarding, rebound, rigid - Extremities Exam Extremities exam: Present: normal inspection - Back Exam Back exam: Present: normal inspection - Neurological Exam Neurological exam: Present: alert, oriented X3, CN II-XII intact. Absent: motor sensory deficit - Psychiatric Psychiatric exam: Present: normal affect, normal mood - Skin Skin exam: Present: warm, dry, intact, normal color. Absent: rash ED Course Vital Signs 09/04/17 09/04/17 11:13 14:34 Temperature 97.9 F 99.3 F Pulse Rate 68 60 Respiratory 18 16 Rate Blood Pressure 124/64 Blood Pressure 164/82 [Left] O2 Sat by Pulse 98 99 Oximetry - Reevaluation(s) Reevaluation #1: Patient received a liter of IV fluid. She states that she feels much improved. She's had no further diarrhea nor nausea. She is discharged in improved condition. She will follow-up with her primary care physician. 09/04/17 16:15 ED Medical Decision Making - Lab Data Result diagrams: 09/04/17 11:24 09/04/17 11:24 Laboratory Results - last 24 hr 09/04/17 09/04/17 09/04/17 11:24 11:24 11:24 WBC 4.6 RBC 4.66 Hgb 14.7 H Hct 42.6 MCV 91 MCH 32 MCHC 35 H RDW 12.7 L Plt Count 168 PT 23.2 H INR 1.92 H APTT 35.3 Sodium 139 Potassium 3.9 Chloride 99.4 Carbon Dioxide 22 Anion Gap 22 BUN 14 Creatinine 0.8 Estimated GFR > 60 BUN/Creatinine Ratio 18 Glucose 118 H Calcium 8.6 Total Bilirubin Direct Bilirubin AST ALT Alkaline Phosphatase Troponin T Total Protein Albumin Albumin/Globulin Ratio 09/04/17 09/04/17 11:24 13:09 WBC RBC Hgb Hct MCV MCH MCHC RDW Plt Count PT INR APTT Sodium Potassium Chloride Carbon Dioxide Anion Gap BUN Creatinine Estimated GFR BUN/Creatinine Ratio Glucose Calcium Total Bilirubin 0.20 Direct Bilirubin < 0.2 AST 21 ALT 11 Alkaline Phosphatase 77 Troponin T < 0.010 Total Protein 6.4 Albumin 3.5 L Albumin/Globulin Ratio 1.2 Critical care attestation.: If time is entered above; I have spent that time in minutes in the direct care of this critically ill patient, excluding procedure time. ED Disposition Clinical Impression: Dehydration Diarrhea Qualifiers: Diarrhea type: unspecified type Qualified Code(s): R19.7 - Diarrhea, unspecified Disposition: - TO HOME OR SELFCARE Is pt being admited?: No Does the pt Need Aspirin: No Condition: Stable Instructions: Acute Diarrhea (ED), Dehydration (ED) Additional Instructions: Light diet and advance as tolerated. Pepto-Bismol as needed. Return any acute change or problems. Follow-up with her primary care physician. Continue current medication. Referrals: PRIMARY CARE, [Primary Care Provider] - 2-3 Days Time of Disposition: 16:18
[2017-09-04 16:47] VITALS: BP 160/94
== END 2017-09-04 16:47 | disposition home or self-care (01) ==
LOC: ED 10:38
DX: E86.0 Dehydration (principal); R19.7 Diarrhea, unspecified; I10 Essential (primary) hypertension; I25.2 Old myocardial infarction; E11.9 Type 2 diabetes mellitus without complications; K21.9 Gastro-esophageal reflux disease without esophagitis; M19.90 Unspecified osteoarthritis, unspecified site; Z95.818 Presence of other cardiac implants and grafts; Z88.0 Allergy status to penicillin; Z88.7 Allergy status to serum and vaccine
CPT/HCPCS: 36415; 71045; 80048; 80074; 84484; 85027; 85610; 85730; 96360; 99284; J7030

== ENCOUNTER 2017-11-27 10:26 | Outpatient (CLI) | payer MEDICARE ==
--- NOTE | 2017-11-28 12:45 | Mammography Report ---
BILATERAL DIGITAL SCREENING MAMMOGRAM with CAD: 11/27/17 10:26:00 CLINICAL: Routine screening. COMPARISON:06/15/16 FINDINGS: The breasts are almost entirely fatty. No mass, architectural distortion or suspicious calcifications. IMPRESSION: No mammographic evidence of malignancy. BI-RADS CATEGORY: 1 - - Negative RECOMMENDATION: Routine mammographic screening in one year. COMMENT: Patient follow-up letters are generated by our [employer] application.
== END 2017-11-27 10:27 | disposition home or self-care (01) ==
LOC: MAMMO 10:26
PROVIDERS: ATTEND Family Medicine
DX: Z12.31 Encounter for screening mammogram for malignant neoplasm of breast (principal)
CPT/HCPCS: 77067

== ENCOUNTER 2018-02-27 04:23 | Emergency (ER) | payer MEDICARE ==
[2018-02-27 05:44] LABS: Basophils % (Auto) 0.8 % (0.0-1.8); Eosinophils # (Auto) 0.2 K/mm3 (0.0-0.4); Eosinophils % (Auto) 2.8 % (0.0-4.3); Hematocrit 41.1 % (30.3-42.9); Hemoglobin 13.9 gm/dl (10.1-14.3); Lymphocytes % (Auto) 35.1 % (13.4-35.0); Mean Corpuscular HGB Conc 34 % (30-34); Mean Corpuscular Hemoglobin 32 pg (28-32); Mean Corpuscular Volume 94 fl (79-97); Monocytes # (Auto) 0.5 K/mm3 (0.0-0.8); Monocytes % (Auto) 9.7 % (0.0-7.3); Platelet Count 191 K/mm3 (140-440); Red Blood Count 4.35 M/mm3 (3.65-5.03)
[2018-02-27 05:46] LABS: INR 1.03 (0.87-1.13); Partial Thromboplastin Time 24.9 Sec. (24.2-36.6)
[2018-02-27 06:13] LABS: Alanine Aminotransferase 10 units/L (7-56); BUN/Creatinine Ratio 19; Blood Urea Nitrogen 15 mg/dL (7-17); Calcium 9.2 mg/dL (8.4-10.2); Hemolysis Index 31
[2018-02-27 06:49] LABS: Bilirubin,Urine NEG (Negative); Blood,Urine NEG (Negative); Color,Urine Straw (Yellow); Mucus,Urine FEW /HPF; Protein,Urine <15 mg/dL mg/dL (Negative); Urobilinogen,Urine < 2.0 mg/dL (<2.0)
[2018-02-27] MEDS ORDERED: ZOFRAN IV ONE (06:57)
[2018-02-27] MEDS ORDERED: ANTIVERT PO ONE (06:58)
--- NOTE | 2018-02-27 07:03 | Emergency Department Report ---
HPI - General Chief Complaint: Dizziness Time Seen by Provider: 02/27/18 06:46 - HPI HPI: Room 20 The patient is an 83-year-old female presenting with a chief complaint of vertigo. The patient says last night is 00:30 after standing up to go to that she states the room began spinning. Patient states she ambulated without difficulty and went to bed. The patient states she awakened at approximately 02 :30 when she opened her eyes and was still spinning. The patient admits to nausea but has been having dry heaves. Patient denies any preceding trauma or fever fever. The patient states she's had an intermittent occipital headache for the past 2-3 days as well as right ear pain same amount of time. Location: [See above] Duration: [See above] Quality: Vertigo Severity: Moderate Modifying factors: [see above] Context: [see above] Mode of transportation: [not driving] ED Past Medical Hx - Past Medical History Hx Hypertension: Yes Hx Heart Attack/AMI: Yes (2014 x2 stents) Hx Diabetes: Yes (pre-diabetic) Hx GERD: Yes Hx Arthritis: Yes Hx Seizures: Yes (last seizure 25 yrs ago) Additional medical history: "bradycardia", cardiomegaly, upper & lower GI last year found colon polyps, high cholesterol - Surgical History Hx Coronary Stent: Yes (x2 stents) Additional Surgical History: fracture left tibia in July 2013 with associated knee effusions requiring drainage twice, right knee bursa removal - Family History Family history: no significant - Social History Smoking Status: Never Smoker Substance Use Type: None - Medications Home Medications: Home Medications Medication Instructions Recorded Confirmed Last Taken Type Irbesartan [Avapro] 150 mg PO QHS 09/28/13 02/19/17 02/18/17 History Metoprolol [Lopressor TAB] 25 mg PO BID 09/28/13 02/19/17 02/19/17 History Phenytoin [Dilantin] 100 mg PO BID 09/28/13 02/19/17 02/19/17 History Simvastatin [Zocor TAB] 40 mg PO QHS 09/28/13 02/19/17 02/18/17 History Thyroid,Pork [[place] Thyroid] 60 mg PO QDAY 09/28/13 02/19/17 02/19/17 History Ranitidine HCl [Zantac 150 MG TAB] 150 mg PO QHS 01/25/17 02/19/17 02/18/17 History Warfarin [Coumadin] 1 mg PO QDAY 01/25/17 02/19/17 02/18/17 History Warfarin [Coumadin] 2 mg PO QDAY 01/25/17 02/19/17 02/19/17 History Meclizine [Antivert] 25 mg PO TID PRN #30 tablet 02/27/18 Unknown Rx Ondansetron [Zofran ODT TAB] 8 mg PO Q8HR #20 tab.rapdis 02/27/18 Unknown Rx ED Review of Systems ROS: Stated complaint: DIZZY VOMITING CONFUSED Other details as noted in HPI Constitutional: denies: fever Eyes: denies: eye pain ENT: ear pain Respiratory: no symptoms reported Cardiovascular: denies: chest pain Endocrine: no symptoms reported Gastrointestinal: nausea. denies: abdominal pain Genitourinary: denies: dysuria Musculoskeletal: denies: back pain Neurological: headache, vertigo Physical Exam - Physical Exam Vital Signs: Vital Signs 02/27/18 02/27/18 02/27/18 04:59 05:23 05:31 Temperature 97.8 F Pulse Rate 59 L 59 L 53 L Respiratory 16 13 15 Rate Blood Pressure 166/69 O2 Sat by Pulse 100 99 99 Oximetry 02/27/18 02/27/18 02/27/18 05:45 06:01 06:15 Temperature Pulse Rate 53 L 68 52 L Respiratory 10 L 12 17 Rate Blood Pressure 177/86 O2 Sat by Pulse 99 99 99 Oximetry 02/27/18 02/27/18 06:23 06:54 Temperature Pulse Rate 56 L Respiratory 18 Rate Blood Pressure O2 Sat by Pulse 98 Oximetry Physical Exam: GENERAL: The patient is well-developed well-nourished female lying on stretcher not appearing to be in acute distress. [] HEENT: Normocephalic. Atraumatic. Extraocular motions are intact. Patient has moist mucous membranes. No nystagmus NECK: Supple. No meningitic signs are noted. Trachea midline CHEST/LUNGS: Clear to auscultation. There is no respiratory distress noted. HEART/CARDIOVASCULAR: Regular. There is no tachycardia. There is no gallop rub or murmur. ABDOMEN: Abdomen is soft, nontender. Patient has normal bowel sounds. There is no abdominal distention. SKIN: There is no rash. There is no edema. There is no diaphoresis. NEURO: The patient is awake, alert, and oriented. The patient is cooperative. The patient has no focal neurologic deficits. The patient has normal speech. Cranial nerves II through XII grossly intact, no drift. No dysmetria noted with [id number] bilaterally MUSCULOSKELETAL: There is no evidence of acute injury. ED Course Vital Signs 02/27/18 02/27/18 02/27/18 04:59 05:23 05:31 Temperature 97.8 F Pulse Rate 59 L 59 L 53 L Respiratory 16 13 15 Rate Blood Pressure 166/69 O2 Sat by Pulse 100 99 99 Oximetry 02/27/18 02/27/18 02/27/18 05:45 06:01 06:15 Temperature Pulse Rate 53 L 68 52 L Respiratory 10 L 12 17 Rate Blood Pressure 177/86 O2 Sat by Pulse 99 99 99 Oximetry 02/27/18 02/27/18 06:23 06:54 Temperature Pulse Rate 56 L Respiratory 18 Rate Blood Pressure O2 Sat by Pulse 98 Oximetry - Reevaluation(s) Reevaluation #1: 02/27/18 08:57 Patient states she feels improved status post medication. ED Medical Decision Making - Lab Data Result diagrams: 02/27/18 05:08 02/27/18 05:08 Laboratory Tests 02/27/18 02/27/18 02/27/18 05:08 05:08 05:08 WBC 5.6 RBC 4.35 Hgb 13.9 Hct 41.1 MCV 94 MCH 32 MCHC 34 RDW 13.0 L Plt Count 191 Lymph % (Auto) 35.1 H [place] % (Auto) 9.7 H Eos % (Auto) 2.8 Baso % (Auto) 0.8 Lymph # 2.0 [place] # 0.5 Eos # 0.2 Baso # 0.0 Seg Neutrophils % 51.6 Seg Neutrophils # 2.9 PT 14.0 INR 1.03 APTT 24.9 Sodium 139 Potassium 4.2 Chloride 101.5 Carbon Dioxide 20 L Anion Gap 22 BUN 15 Creatinine 0.8 Estimated GFR > 60 BUN/Creatinine Ratio 19 Glucose 120 H Calcium 9.2 Total Bilirubin 0.30 AST 19 ALT 10 Alkaline Phosphatase 74 Total Protein 6.6 Albumin 4.0 Albumin/Globulin Ratio 1.5 Urine Color Urine Turbidity Urine pH Ur Specific [place] Urine Protein Urine Glucose (UA) Urine Ketones Urine Blood Urine Nitrite Urine Bilirubin Urine Urobilinogen Ur Leukocyte Esterase Urine WBC (Auto) Urine RBC (Auto) U Epithel Cells (Auto) Urine Mucus Phenytoin 02/27/18 02/27/18 06:40 07:08 WBC RBC Hgb Hct MCV MCH MCHC RDW Plt Count Lymph % (Auto) [place] % (Auto) Eos % (Auto) Baso % (Auto) Lymph # [place] # Eos # Baso # Seg Neutrophils % Seg Neutrophils # PT INR APTT Sodium Potassium Chloride Carbon Dioxide Anion Gap BUN Creatinine Estimated GFR BUN/Creatinine Ratio Glucose Calcium Total Bilirubin AST ALT Alkaline Phosphatase Total Protein Albumin Albumin/Globulin Ratio Urine Color Straw Urine Turbidity Clear Urine pH 8.0 H Ur Specific [place] 1.002 L Urine Protein <15 mg/dl Urine Glucose (UA) Neg Urine Ketones Neg Urine Blood Neg Urine Nitrite Neg Urine Bilirubin Neg Urine Urobilinogen < 2.0 Ur Leukocyte Esterase Mod Urine WBC (Auto) 2.0 Urine RBC (Auto) 2.0 U Epithel Cells (Auto) 2.0 Urine Mucus Few Phenytoin 10.7 - EKG Data -: EKG Interpreted by Oh EKG shows normal: sinus rhythm Rate: bradycardia (56 bpm) - EKG Data When compared to previous EKG there are: changes noted Interpretation: nonspecific ST-T wave justa (new T-wave inversion in lead V3. Biphasic T-wave in lead V4) - Radiology Data Radiology results: report reviewed (CT head), image reviewed (CT head) Findings [facility] [address] [place] [address] Cat Scan Report Signed Patient: HAILEY GUTIERRES MR#: [id number] : 1935 Acct:[id number] Age/Sex: 83 / F ADM Date: 02/27/18 Loc: ED Attending Dr: Ordering Physician: MARCUS PLASCENCIA MD Date of Service: 02/27/18 Procedure(s): CT head/brain wo con Accession Number(s): [id number] cc: MARCUS PLASCENCIA MD FINAL REPORT EXAM: CT HEAD/BRAIN WO CON HISTORY: vertigo TECHNIQUE: CT imaging is acquired through the brain without contrast. Transaxial reformations are provided. PRIORS : None. FINDINGS: Ventricles and CSF spaces are proportionately enlarged, consistent with parenchymal atrophy. Scattered deep and subcortical white matter hypodense foci are confluent in some areas and are compatible with microvascular angiopathy. No acute intracranial hemorrhage or mass effect. No skull fracture. No significant abnormality within the imaged paranasal sinuses or mastoid air cells. IMPRESSION: No acute intracranial abnormality. Consider additional imaging for worsening/persistent symptoms. 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 Transcribed By: MB Dictated By: SYLVIE GUERRIER MD Electronically Authenticated By: SYLVIE GUERRIER MD Signed Date/Time: 02/27/18828 DD/ 8 TD/TT: 02/27/18828 - Differential Diagnosis vertigo, dehydration, Dilantin toxicity Critical care attestation.: If time is entered above; I have spent that time in minutes in the direct care of this critically ill patient, excluding procedure time. ED Disposition Clinical Impression: Vertigo, Nausea Disposition: - TO HOME OR SELFCARE Is pt being admited?: No Does the pt Need Aspirin: No Condition: Stable Instructions: Vertigo (ED) Additional Instructions: Return to the emergency department immediately should you develop worsening symptoms, fever, inability to tolerate food or liquid or any other concerns. Prescriptions: Meclizine [Antivert] 25 mg PO TID PRN #30 tablet PRN Reason: Vertigo Ondansetron [Zofran ODT TAB] 8 mg PO Q8HR #20 tab.rapdis Referrals: PRIMARY CAREMD [Primary Care Provider] - 3-5 Days CARL MENDOZA MD [Staff Physician] - 3-5 Days (Dr. Mendoza as an compress machine operator (ear nose and throat doctor). Please follow-up with him for further evaluation) Time of Disposition: 08:58
--- NOTE | 2018-02-27 08:29 | Cat Scan Report ---
FINAL REPORT EXAM: CT HEAD/BRAIN WO CON HISTORY: vertigo TECHNIQUE: CT imaging is acquired through the brain without contrast. Transaxial reformations are provided. PRIORS: None. FINDINGS: Ventricles and CSF spaces are proportionately enlarged, consistent with parenchymal atrophy. Scattered deep and subcortical white matter hypodense foci are confluent in some areas and are compatible with microvascular angiopathy. No acute intracranial hemorrhage or mass effect. No skull fracture. No significant abnormality within the imaged paranasal sinuses or mastoid air cells. IMPRESSION: No acute intracranial abnormality. Consider additional imaging for worsening/persistent symptoms. 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
[2018-02-27 09:22] VITALS: BP 163/75
== END 2018-02-27 09:22 | disposition home or self-care (01) ==
LOC: ED 04:23
DX: R42 Dizziness and giddiness (principal); R11.0 Nausea; R51 Headache; H92.01 Otalgia, right ear; I10 Essential (primary) hypertension; I25.2 Old myocardial infarction; E11.9 Type 2 diabetes mellitus without complications; K21.9 Gastro-esophageal reflux disease without esophagitis; M19.90 Unspecified osteoarthritis, unspecified site; E78.00 Pure hypercholesterolemia, unspecified; Z95.818 Presence of other cardiac implants and grafts; Z79.01 Long term (current) use of anticoagulants; Z88.0 Allergy status to penicillin; Z88.7 Allergy status to serum and vaccine; Z88.8 Allergy status to other drugs, medicaments and biological substances
CPT/HCPCS: 36415; 70450; 80053; 80185; 81001; 85025; 85610; 85730; 93005; 93010; 96374; 99284; J2405